=== PATIENT | male | born 1965 | race Caucasian/White ===

== ENCOUNTER 2019-01-10 14:17 | Emergency (ER) | payer BC, OTHER ==
[2019-01-10 17:39] VITALS: BP 112/66
--- NOTE | 2019-01-14 09:33 | ED ---
Laceration/Wound HPI - HPI Summary HPI Summary: Patient is a 53-year-old male presenting to the ED with the right little finger partial amputation which occurred just [employer]. He states he trapped the finger accidentally in a mixer. The patient is occurring just distal to the DIP. Patient is currently taking blood thinners but bleeding is well-controlled on arrival. He is endorsing pain and 9/10. Pain is throbbing. He denies any other injuries. - History of Current Complaint Stated Complaint: FINGER LAC PER PT Time Seen by Provider: 01/10/19 14:46 Hx Obtained From: Patient Mechanism of Injury: Sharp/Blunt Trauma Onset/Duration: Sudden Onset Aggravating: Movement Alleviating: Compression Timing: Constant Onset Severity: Mild Current Severity: Mild Pain Intensity: 0 Pain Scale Used: 0-10 Numeric Associated Signs & Symptoms: Negative Related Hx: Anticoagulat Use - Allergy/Home Medications Allergies/Adverse Reactions: Allergies Allergy/AdvReac Type Severity Reaction Status Date / Time No Known Allergies Allergy Verified 01/10/19 14:22 PMH/Surg Hx/FS Hx/Imm Hx Previously Healthy: Yes - Immunization History Hx Pertussis Vaccination: No Immunizations Up to Date: Yes Infectious Disease History: No Infectious Disease History: Denies: Traveled Outside the [place] in Last 30 Days - Social History Occupation: Employed Full-time Lives: With Family Alcohol Use: unknown Hx Substance Use: No Substance Use Type: Reports: None Hx Tobacco Use: No Smoking Status (MU): Unknown if Ever Smoked Review of Systems Constitutional: Negative Negative: Fever, Chills, Fatigue, Skin Diaphoresis Negative: Palpitations, Chest Pain Negative: Shortness Of Breath, Cough Negative: Arthralgia, Myalgia Positive: Other - partial amputation to the distal tip of the R little finger Neurological: Negative Psychological: Normal All Other Systems Reviewed And Are Negative: Yes Physical Exam Triage Information Reviewed: Yes Vital Signs On Initial Exam: Initial Vitals Temp Pulse Resp BP Pulse Ox 97.9 F 67 20 113/79 97 01/10/19 14:18 01/10/19 14:18 01/10/19 14:18 01/10/19 14:18 01/10/19 14:18 Vital Signs Reviewed: Yes Appearance: Positive: Well-Appearing, Well-Nourished Skin: Positive: Warm, Skin Color Reflects Adequate Perfusion, Other - partial amputation to the distal tip of the R little finger Head/Face: Positive: Normal Head/Face Inspection Eyes: Positive: EOMI, Conjunctiva Clear Neck: Positive: Supple Respiratory/Lung Sounds: Positive: Clear to Auscultation, Breath Sounds Present Cardiovascular: Positive: Normal, RRR, Pulses are Symmetrical in both Upper and Lower Extremities Musculoskeletal: Positive: Strength/ROM Intact Neurological: Positive: Speech Normal Psychiatric: Positive: Affect/Mood Appropriate Procedures - Laceration/Wound Repair 1 Location: upper extremity Description: Linear Anesthesia: Digital Betadine Prep?: No Laceration/Wound Explored: clean Closure: Single Layer - 6 Suture Type: Prolene Number of Sutures: 6 - involving nail bed Layer Closure?: No Sterile Dressing Applied?: No Diagnostics - Vital Signs Vital Signs Temp Pulse Resp BP Pulse Ox 01/10/19 17:24 98 F 65 18 112/66 98 01/10/19 14:18 97.9 F 67 20 113/79 97 - Laboratory Lab Statement: Any lab studies that have been ordered have been reviewed, and results considered in the medical decision making process. Laceration Repair Course/Dx - Course Course Of Treatment: During the course treatment, the patient's evaluated for a partial amputation just distal to the DIP with associated fracture noted on x- ray. X-ray shows transverse slightly displaced fracture of the tuft of the distal phalanx of the fifth digit. Tetanus is up-to-date. Digital block with good effect using 1% lidocaine without epi. Cleansed wound thoroughly with jet irrigation 5 minutes. Using 4-0 and 5-0 prolene, 6 sutures placed - 2 through nail. Nailbed not involved. At this time denies any pain. Pulses +2 intact bilaterally to the radial. Good cap refill. Patient will follow-up with Dr. Dover. Splint applied. Patient placed on antibiotics as this is an open fracture. - Differential Dx Differental Diagnoses: Avulsion, Laceration - Clinical Impression Provider Diagnoses: Laceration of finger, Avulsion, finger tip, Open fracture of finger Discharge - Sign-Out/Discharge Documenting (check all that apply): Patient Departure Patient Received Moderate/Deep Sedation with Procedure: No - Discharge Plan Condition: Good Disposition: HOME Prescriptions: Cephalexin CAP* [Keflex CAP*] 500 mg PO TID #21 cap oxyCODONE TAB* [Roxycodone TAB 5 mg*] 5 mg PO Q4H PRN #18 tab MDD 6 PRN Reason: Pain Patient Education Materials: Care For Your Stitches (ED), Laceration (ED), Finger Fracture (ED) Referrals: Edy GRULLON,Jesse Rodas [Primary Care Provider] - Zaria Dover MD [Medical Doctor] - Additional Instructions: Keep the bandage applied x 24 hours When changing bandage, cleanse wound with soap and water and dry thoroughly Apply bandage again. Keflex three times daily x 7 days Start this immediately first dose this afternoon and next dose before bed Follow up with orthopedics Call office tomorrow morning for an appt oxycodone up to 6 times daily (or every 4 hours) for pain - Billing Disposition and Condition Condition: GOOD Disposition: Home
== END 2019-01-10 17:24 | disposition home or self-care (01) ==
LOC: ED 14:17
DX: S68.126A Partial traumatic metacarpophalangeal amputation of right little finger, initial encounter (principal); W31.89XA Contact with other specified machinery, initial encounter; Z79.01 Long term (current) use of anticoagulants
CPT/HCPCS: 12041; 73140; 99282